=== PATIENT | female | born 1965 | race Caucasian/White ===

== ENCOUNTER → 2019-11-07 15:50 | Outpatient (BNVA) | payer OTHER, SELFPAY | PROVIDERS: PCP Family Medicine; Visit Provider Nurse Practitioner Family | DX: R05 Cough (principal); J40 Bronchitis, not specified as acute or chronic | CPT/HCPCS: 71046 ==

== ENCOUNTER → 2023-05-25 14:32 | Outpatient (BNVA) | payer OTHER, SELFPAY | PROVIDERS: PCP Family Medicine; Visit Provider Family Medicine | DX: Z00.00 Encounter for general adult medical examination without abnormal findings (principal); E03.9 Hypothyroidism, unspecified; D75.1 Secondary polycythemia; D64.9 Anemia, unspecified | CPT/HCPCS: 80053; 80061; 82728; 83550; 84443; 85025 ==

== ENCOUNTER → 2024-05-27 08:25 | Outpatient (BNVA) | payer OTHER, SELFPAY | PROVIDERS: PCP Family Medicine; Visit Provider Family Medicine | DX: D64.9 Anemia, unspecified (principal) | CPT/HCPCS: 82728; 83550; 85025 ==

== ENCOUNTER → 2024-07-29 08:48 | Outpatient (BNVA) | payer OTHER, SELFPAY | PROVIDERS: PCP Family Medicine; Visit Provider Family Medicine | DX: Z79.899 Other long term (current) drug therapy (principal) | CPT/HCPCS: 80048 ==

== ENCOUNTER 2024-09-20 11:57 | Outpatient (CLI) | payer OTHER, SELFPAY ==
--- NOTE | 2024-09-20 12:00 | MM_ITS ---
WS: [id number] BILATERAL 3D TOMOSYNTHESIS DIGITAL SCREENING MAMMOGRAPHY WITH CAD CLINICAL INFORMATION: breast cancer screening HISTORY: Screening mammogram. No current complaints. COMPARISON: 2009 TECHNIQUE: Bilateral CC and MLO views. FINDINGS: Scattered fibroglandular densities bilaterally. No suspicious focal mass, asymmetry, calcifications, or architectural distortion. No evidence of malignancy. Punctate and lucent centered calcifications. MM/MM scr tomosynthesis [id number] IMPRESSION: DENSITY: There are scattered areas of fibroglandular density. BI-RADS: 2 - Benign. FOLLOW UP: 1 Year Follow-up Recommend return to annual screening mammography.
== END 2024-09-20 11:58 | disposition home or self-care (01) ==
LOC: RAD 11:58
PROVIDERS: PCP Family Medicine; Visit Provider Family Medicine
DX: Z12.31 Encounter for screening mammogram for malignant neoplasm of breast (principal); R92.1 Mammographic calcification found on diagnostic imaging of breast
CPT/HCPCS: 77063; 77067

== ENCOUNTER 2024-09-21 09:48 | Outpatient (CLI) | payer OTHER, SELFPAY ==
--- NOTE | 2024-09-21 09:49 | XRR_ITS ---
PROCEDURE INFORMATION: Exam: XR Right Foot Exam date and time: 09/21/2024 9:58 AM Age: 58 years old Clinical indication: Patient HX: Right foot pain x 2 mo, pain mostly inferior and lateral with knots on sides and swelling, no specific injury; Additional info: Pain over 5th metatarsal x 1 month, suspect oa TECHNIQUE: Imaging protocol: Radiologic exam of the right foot. Views: 3 or more views. COMPARISON: No relevant prior studies available. FINDINGS: Bones/joints: Normal. No fracture or dislocation. No acute osseous, joint, or soft tissue abnormality. Mild intertarsal degenerative changes. Soft tissues: Normal. XR/XR foot RT min 3V* [id number] IMPRESSION: No acute findings.
== END 2024-09-21 09:49 | disposition home or self-care (01) ==
LOC: RAD 09:49
PROVIDERS: PCP Family Medicine; Visit Provider Family Medicine
DX: M79.671 Pain in right foot (principal)
CPT/HCPCS: 73630

== ENCOUNTER 2024-10-25 07:42 | Day surgery (SDC) | payer OTHER, SELFPAY ==
[2024-10-25 07:59] VITALS: BP 128/85; PULSE 112; RESP 20; TEMP 36.2; O2SAT 96
[2024-10-25] MEDS: sodium chloride 0.9% 500 ML 15 ML IV (08:07)
--- NOTE | 2024-10-25 08:21 | P.ANESASSM_ITS ---
Pre-Anesthetic Assessment Height/Weight: Height 1.63 m Weight 61.235 kg Temp Pulse Resp BP Pulse Ox O2 Del Method 97.1 F L 112 H 20 H 128/85 96 Room Air 10/25/24 07:59 10/25/24 07:59 10/25/24 07:59 10/25/24 07:59 10/25/24 07:59 10/25/24 07:59 Operation Date: 10/25/24 08:30 Proposed Procedures p EGD 78683, [id number], G0105, Z12.11(Not Applicable) - Carmine Mejia MD s Colonoscopy(Not Applicable) - Carmine Mejia MD Familial anesthetic complications: PONV for days Was Beta Estevan taken within 24 hours: N/A Was Clonidine taken within 24 hours: N/A Last intake: Intake Last Liquid Date 10/24/24 Last Liquid Time 20:00 Last Solid Date 10/23/24 Last Solid Time 21:00 Social No alcohol and No tobacco Exam alert and oriented x 3 Airway Submandibular: within normal limits Cervical ROM: within normal limits Mallampati: Class IV Dentition: full Pulmonary Asthma CV/HEM None reported None reported Hepatic None reported GI Gastroesophageal Reflux Disease Metabolic Thyroid Disease [facility] [place] None reported Neuropsych None reported Anesthetic Plan ASA status: 2 Anesthesia: Anesthesia Evaluation and MAC Medications/Allergies Home Medications Medication Instructions Recorded Confirmed Last Taken Type clobetasol 0.05 % topical ointment 1 applic topical BID 2 weeks #60 09/23/22 10/20/24 6 Months Ago Rx grams ~04/20/24 mupirocin 2 % topical ointment 1 applic topical BID #22 grams 09/23/22 10/25/24 10/23/24 Rx fluticasone propionate 50 2 spray intranasal ONCE #16 grams 12/03/23 10/25/24 10/23/24 Rx mcg/actuation nasal spray,suspension acyclovir 400 mg tablet 400 mg PO BID #60 tabs 06/29/24 10/25/24 10/23/24 Rx loratadine 10 mg tablet (Claritin) 10 mg PO ONCE 30 days #30 tabs 06/29/24 10/25/24 10/23/24 Rx levothyroxine 75 mcg tablet 75 mcg PO DAILY #90 tabs 09/09/24 10/25/24 10/23/24 Rx pantoprazole 40 mg tablet,delayed 40 mg PO DAILY #30 tabs 09/09/24 10/25/24 10/23/24 Rx release sole supports #1 ea 09/28/24 09/28/24 Unknown Rx conjugated estrogens 0.625 mg 0.625 mg PO DAILY #90 tabs 10/17/24 10/25/24 10/23/24 Rx tablet (Premarin) diclofenac sodium 100 mg 100 mg PO DAILY 10/20/24 10/25/24 10/23/24 History tablet,extended release 24 hr montelukast 10 mg tablet 10 mg PO DAILY 10/20/24 10/25/24 10/23/24 History rizatriptan 10 mg tablet 10 mg PO Q2H PRN Migraine Headache 10/20/24 10/25/24 10/23/24 History topiramate 50 mg tablet 50 mg PO DAILY 10/20/24 10/25/24 10/23/24 History zolmitriptan 2.5 mg disintegrating 2.5 mg PO Q2H PRN Migraine Headache 10/20/24 10/25/24 10/23/24 History tablet Allergies Allergy/AdvReac Type Severity Reaction Status Date / Time meperidine [From Demerol] Allergy Mild Swelling Verified 10/20/24 13:03 At the Site of Injection Sulfa (Sulfonamide Allergy Urticaria Verified 10/20/24 13:03 Antibiotics) Penicillins AdvReac Severe Organ Verified 10/20/24 13:03 Failure codeine AdvReac Intermediate Esophageal Verified 10/20/24 13:03 Spasms Current Medications Generic Name Dose Route Start Last Admin Trade Name Freq PRN Reason Stop Dose Admin Sodium Chloride 500 mls @ 15 mls/hr 10/25/24 07:47 10/25/24 08:07 Sodium Chloride 0.9% IV 10/26/24 07:46 15 mls/hr .Q24H PRN Administration COLONOSCOPY FLUIDS PFSH Anesthesia Medical History History of nonmelanoma skin cancer Fibromyalgia Rheumatoid arthritis Asthma Hypothyroidism Fever blister History of bleeding peptic ulcer GERD (gastroesophageal reflux disease) Migraines Surgical History History of surgery on left wrist repair from trauma History of cholecystectomy History of total hysterectomy with bilateral salpingo-oophorectomy (BSO) endometriosis Family History Mother Rheumatoid arthritis Brother Cancer thyroid Diabetes Father Cancer colon Social History Smoking and tobacco/nicotine status: never used tobacco/nicotine Alcohol intake: never Substance/Drug Use: never Lives independently: Yes Household members: none Marital status: Single Number of children: 0 Current occupational status: employed Current occupation: [employer] Pets and animals: Yes Pets & animals: dog(s) Pets & animal details: smith (dog) Leisure activites: fishing and other Leisure activities details: refinishing antique furniture Windy/Restoration: [employer] [place] Agree to transfusion: Yes Data Anesthesia Cardiac Studies: No Data to Display
--- NOTE | 2024-10-25 08:31 | W.PM.OPSFHP ---
Same Day Surgery H&P Indication for Procedure/HPI DATE OF PROCEDURE: October 25, 2024 CHIEF COMPLAINT/INDICATIONFOR SURGICAL PROCEDURE: screening colonoscopy and heartburn PREOP DIAGNOSIS: screening colonoscopy and heartburn PLANNED PROCEDURE: Operation Date: 10/25/24 08:30 Proposed Procedures p EGD 12206, 59149, G0105, Z12.11(Not Applicable) - Carmine Mejia MD s Colonoscopy(Not Applicable) - Carmine Mejia MD Medications/Allergies* Home Medications Medication Instructions Recorded Confirmed Type diclofenac sodium 100 mg 100 mg PO DAILY 10/20/24 10/25/24 History tablet,extended release 24 hr montelukast 10 mg tablet 10 mg PO DAILY 10/20/24 10/25/24 History rizatriptan 10 mg tablet 10 mg PO Q2H PRN Migraine Headache 10/20/24 10/25/24 History topiramate 50 mg tablet 50 mg PO DAILY 10/20/24 10/25/24 History zolmitriptan 2.5 mg disintegrating 2.5 mg PO Q2H PRN Migraine Headache 10/20/24 10/25/24 History tablet Allergies/Adverse Reactions Allergy/AdvReac Type Severity Reaction Status Date / Time meperidine [From Demerol] Allergy Mild Swelling Verified 10/20/24 13:03 At the Site of Injection Sulfa (Sulfonamide Allergy Urticaria Verified 10/20/24 13:03 Antibiotics) Penicillins AdvReac Severe Organ Verified 10/20/24 13:03 Failure codeine AdvReac Intermediate Esophageal Verified 10/20/24 13:03 Spasms Current Medications: Generic Name Dose Route Start Last Admin Trade Name Freq PRN Reason Stop Dose Admin Sodium Chloride 500 mls @ 15 mls/hr 10/25/24 07:47 10/25/24 08:07 Sodium Chloride 0.9% IV 10/26/24 07:46 15 mls/hr .Q24H PRN Administration COLONOSCOPY FLUIDS Pertinent History/Comorbid Conditions* Medical History (Updated 05/27/24 @ 08:20 by Karina Loco MD) History of nonmelanoma skin cancer Fibromyalgia Rheumatoid arthritis Asthma Hypothyroidism Fever blister History of bleeding peptic ulcer GERD (gastroesophageal reflux disease) Migraines Surgical History (Updated 05/25/23 @ 13:26 by Karina Loco MD) History of surgery on left wrist repair from trauma History of cholecystectomy History of total hysterectomy with bilateral salpingo-oophorectomy (BSO) endometriosis Family History (Updated 05/25/23 @ 13:48 by Karina Loco MD) Rheumatoid arthritis Mother Diabetes Brother Cancer Brother thyroid Father colon Social History Smoking and tobacco/nicotine status: never used tobacco/nicotine Alcohol intake: never Substance/Drug Use: never Lives independently: Yes Household members: none Marital status: Single Number of children: 0 Current occupational status: employed Current occupation: [employer]illar Pets and animals: Yes Pets & animals: dog(s) Pets & animal details: smith (dog) Leisure activites: fishing and other Leisure activities details: refinishing antique furniture Windy/Catholic: [employer] [place] Agree to transfusion: Yes Pertinent Exam Findings alert, oriented x 3, clear to auscultation bilaterally, regular rate & rhythm and procedure specific exam findings abdomen soft, nt, nd Recommendations Surgery/Procedure today Coding Level of Care Code Acute Code for Chg Fwd
[2024-10-25 08:57] VITALS: BP 109/65; PULSE 101; RESP 18; TEMP 36.3; O2SAT 95
[2024-10-25 09:08] VITALS: BP 113/74; PULSE 92; RESP 18; TEMP 36.2; O2SAT 97
--- NOTE | 2024-10-25 09:44 | ANE.PACU2 ---
Inpatient post-anesthesia follow up: Airway intact: Yes Vital signs: Temperature 97.2 F Pulse Rate 92 Respiratory Rate 18 Blood Pressure 113/74 Pulse Oximetry 97 Oxygen Delivery Me thod Room Air Oxygen Flow Rate Fraction of Inspir ed Oxygen Hydration adequate: Yes Nausea and vomiting: No Pain level: 1 Mental status: Baseline
== END 2024-10-25 09:38 | disposition home or self-care (01) ==
PROVIDERS: PCP Family Medicine; Visit Provider Student in an Organized Health Care Education/Training Program
PROC: 0DJ08ZZ Inspection of Upper Intestinal Tract, Via Natural or Artificial Opening Endoscopic (ICD-10-PCS; principal; 2024-10-25 08:30)
PROC: 0DJD8ZZ Inspection of Lower Intestinal Tract, Via Natural or Artificial Opening Endoscopic (ICD-10-PCS; CPT 45378; 2024-10-25 08:30)
DX: Z12.11 Encounter for screening for malignant neoplasm of colon (principal); D50.9 Iron deficiency anemia, unspecified; R12 Heartburn; K29.70 Gastritis, unspecified, without bleeding; K52.9 Noninfective gastroenteritis and colitis, unspecified; K21.9 Gastro-esophageal reflux disease without esophagitis; M79.7 Fibromyalgia; E03.9 Hypothyroidism, unspecified; Z87.11 Personal history of peptic ulcer disease
CPT/HCPCS: 43239; 45380; 88305; J2704; J7040

== ENCOUNTER → 2025-03-14 12:55 | Outpatient (BNVA) | payer OTHER, SELFPAY | PROVIDERS: PCP Family Medicine; Visit Provider Podiatrist Foot & Ankle Surgery | DX: M79.671 Pain in right foot (principal); M72.2 Plantar fascial fibromatosis; M19.071 Primary osteoarthritis, right ankle and foot; M25.571 Pain in right ankle and joints of right foot; Q78.8 Other specified osteochondrodysplasias | CPT/HCPCS: 73630 ==

== ENCOUNTER → 2025-06-09 11:21 | Outpatient (BNVA) | payer OTHER, SELFPAY | PROVIDERS: Visit Provider Family Medicine | DX: E03.9 Hypothyroidism, unspecified (principal) | CPT/HCPCS: 84443 ==

== ENCOUNTER 2025-06-14 15:52 | Outpatient (CLI) | payer OTHER, SELFPAY ==
--- NOTE | 2025-06-14 16:00 | MR_ITS ---
WS: [id number] MRI HEAD WITH CONTRAST TECHNIQUE: Sagittal T1, T2 axial, T2 axial FLAIR, axial susceptibility weighted imaging, axial diffusion weighted images, and coronal T2 images were obtained. Pre and post-T1 axial and post T1 coronal images. ADC and FSPGR images. CLINICAL INFORMATION: persistent headache COMPARISON: MRI 2014 FINDINGS: No evidence of restricted diffusion to suggest acute ischemia. Mild vessel changes progressed since 2015. Mild parenchymal volume loss. Tiny chronic lacunar infarct RIGHT cerebellum. Normal vascular flow voids at the skull base. No extra-axial fluid collections. Paranasal sinuses and mastoid air cells are well aerated. Normal posterior nasopharynx. Chronic appearing opacification of the RIGHT mastoid air cells unchanged since 2014 No hemosiderin on susceptibility-weighted images. Somewhat prominent pituitary tissue for a patient this age although unchanged since 2015. Recommend correlation with pituitary function studies. Optic chiasm and pituitary infundibulum. Temporal lobes and hippocampal formations are normal in appearance. Very poor if any gadolinium contrast opacification on the postgadolinium images of limited utility MR/MR head wo/w con [id number] IMPRESSION: 1. No evidence of restricted diffusion to suggest acute ischemia. 2. Mild small vessel changes. Mild parenchymal volume loss. 3. No hemosiderin. 4. Chronic appearing opacification of the RIGHT mastoid air cells appears unch anged since 2014. 5. Somewhat prominent pituitary tissue for patient this age may be incidental and unchanged since 2015. Recommend correlation pituitary function studies. 6. Tiny chronic lacunar infarct RIGHT cerebellum.
[2025-06-14] MEDS: gadobenate dimeglumine 20 mL vial IV (16:47)
== END 2025-06-14 15:53 | disposition home or self-care (01) ==
LOC: RAD 15:53
PROVIDERS: Visit Provider Emergency Medicine
DX: R51.9 Headache, unspecified (principal); I67.89 Other cerebrovascular disease; R90.89 Other abnormal findings on diagnostic imaging of central nervous system; I63.81 Other cerebral infarction due to occlusion or stenosis of small artery
CPT/HCPCS: 70553

== ENCOUNTER → 2025-06-30 09:02 | Outpatient (BNVA) | payer SELFPAY | PROVIDERS: PCP Family Medicine; Visit Provider Family Medicine | DX: D75.1 Secondary polycythemia (principal); D50.9 Iron deficiency anemia, unspecified; N95.1 Menopausal and female climacteric states | CPT/HCPCS: 80053; 80061; 82728; 83550; 85025 ==